=== PATIENT | female | born 1990 | race Caucasian/White ===

== ENCOUNTER 2016-09-29 09:38 | Emergency (ER) | payer OTHER ==
--- NOTE | ~2016-09-29 | CR229 ---
[facility] A Service of [facility] & [facility] RADIOLOGY TEXT RESULTS PATIENT: ALISSA BAY LOCATION: SED : [birth year] UNIT #: [id number] AGE: [address]: Shruti Estrada APRN SEX: F ORDER DR: [id number] [address] [address] [id number] E MR#: [id number] Acc #: [id number] NAME: ALISSA BAY : 1990 SEX: F STUDY DATE/TIME: 09/29/2016 10:24 UNIT: SED ROOM: STUDY DESCRIPTION: CR Shoulder Min 2 View Lt Attending Physician: Shruti Estrada A.P.R.N. Ordering Physician: Shruti Estrada A.P.R.N. Primary Care Physician: No Primary Care Physician MEDICAL IMAGING REPORT This report is preliminary unless electronic signature is present. EXAM Left shoulder, 09/29/2016, [facility]. HISTORY 26-year-old female with left-side chest pain, left shoulder pain. FINDINGS 3 views of the left shoulder demonstrate no osseous, articular, or soft tissue abnormality. Visualized bone structures are normal. Soft tissues appear unremarkable. IMPRESSION Negative left shoulder. Dictated by... Alphonse Hboson M.D. THIS IS AN ELECTRONICALLY VERIFIED REPORT Alphonse Hobson M.D. at 09/29/2016 1:35 PM KEENAN/birdie TD: 09/29/2016 12:30 JOB #: [id number] MEDICAL IMAGING REPORT Page 1 of 1
--- NOTE | ~2016-09-29 | CR63 ---
[facility] A Service of [facility] & [facility] RADIOLOGY TEXT RESULTS PATIENT: ALISSA BAY LOCATION: SED : 90 UNIT #: [id number] AGE: [address]: Shruti Estrada APRN SEX: F ORDER DR: [id number] [address] [address] [id number] E MR#: [id number] Acc #: [id number] NAME: ALISSA BAY : 1990 SEX: F STUDY DATE/TIME: 09/29/2016 10:24 UNIT: SED ROOM: STUDY DESCRIPTION: CR Chest 2 View Attending Physician: Shruti Estrada A.P.R.N. Ordering Physician: Shruti Estrada A.P.R.N. Primary Care Physician: Primary Care Physician No MEDICAL IMAGING REPORT This report is preliminary unless electronic signature is present. EXAM Chest, 09/29/2016 HISTORY 26-year-old female with chest pain, left shoulder pain 3 months duration. COMPARISON Chest, 01/27/2012 FINDINGS PA and lateral chest views show normal cardiac size and configuration. Hilar structures and mediastinal contours are preserved. Bilateral lungs are expanded and clear. Costophrenic angles are preserved. IMPRESSION Negative chest. Dictated by... Alphonse Hobson M.D. THIS IS AN ELECTRONICALLY VERIFIED REPORT Alphonse Hobson M.D. at 09/29/2016 1:35 PM Donte TD: 09/29/2016 12:28 JOB #: [id number] MEDICAL IMAGING REPORT Page 1 of 1
--- NOTE | ~2016-09-29 | EKG ---
PATIENT: ALISSA BAY UNIT #: [id number] Ventricular Rate: 82 BPM Atrial Rate: 82 BPM P-R Interval: 136 ms QRS Duration: 92 ms Q-T Interval: 362 ms QTC Calculation(Bezet): 422 ms P Trezevant: 36 degrees Calculated R Trezevant: 80 degrees Calculated T Trezevant: 46 degrees Diagnosis Line: Normal sinus rhythm with sinus arrhythmia Diagnosis Line: Normal ECG Diagnosis Line: Diagnosis Line: Confirmed by MONTY ONEAL MD ([id number]) on 10/01/2016 Diagnosis Line: 8:04:18 PM INTERPRETING MD: JM APPLE
[~2016-09-29 09:38] MED LIST: ALBUTEROL17 GM INH; AUGMENTIN875 M1 PO; BACTROBAN22 GM TOP; FLAGYL PO; FLEXERIL10 M1 PO; IBUPROFEN PO; IMPLANON IMPLANT; KEFLEX250 M1 PO; LORTAB 5/500 TA1 TA1 PO; MAGIC MOUTHWASH PO; NO MEDICATIONS; NORCO1 TAB 10/3 PO; PEN-VEE K PO; PHENERGAN PO; PREDNISONE PO; PRENATAL1 TA1; VIBRAMYCIN100 M1 PO; VOLTAREN75 MG PO; ZITHROMAX PO
[2016-09-29] MEDS ORDERED: NO MEDICATIONS (09:44)
== END 2016-09-29 11:08 | disposition home or self-care (01) ==
LOC: SED 09:38
DX: R07.2 Precordial pain (principal)
CPT/HCPCS: 71020; 73030; 93005; 99284